=== PATIENT | male | born 1990 | race Caucasian/White ===

== ENCOUNTER 2018-10-19 16:56 | Emergency (ER) | payer OTHER, SELFPAY ==
[2018-10-19 16:57] VITALS: BP 119/74; PULSE 70; RESP 16; TEMP 36.5; O2SAT 100; BMI 27.1
--- NOTE | 2018-10-19 17:23 | ED.VISSUMM ---
- ER Visit Summary Date of Service: 10/19/18 Chief Complaint: Dental pain with facial swelling History of Present Illness: The patient is a 28 M with right-sided dental pain for the past 5 days. He was seen in urgent care 3 days ago and started on amoxicillin. Patient has had increased right facial swelling. He states in the past he has not done well with amoxicillin for dental infections. He does well with Pen-Vee K. Physical Examination: Vital signs unremarkable. Patient sitting upright in bed no acute distress. He speaking with a strong voice. Head neck examination does reveal right maxillary facial edema without erythema. Right maxillary first molar is decayed to the gumline with moderate gum edema. The left mandibular third molar is decayed to the gumline with mild gum edema. Posterior pharynx examination is normal. There is no trismus. Submental space is soft with no sign of Chandana's angina. Remainder of exam is unremarkable. Test Results: [] Emergency Department Course and Treatment: Patient will be given a prescription for Pen-Vee K along with naproxen. He has an appointment with a dentist next week. Treatment Plan: [] Disposition: Discharge Impression: Odontalgia with dental abscess This note was generated with [employer] dictation software. It may contain incorrect words, spelling, and punctuation that were not noted in review of the chart prior to signing ED Disposition - Plan for ED Patient: Chief Complaint: Dental Referrals: Care Physician,No Primary [Primary Care Provider] -
--- NOTE | 2018-10-19 17:25 | ED.DEP ---
ED Disposition - Plan for ED Patient: Disposition: Home or Assisted Living Chief Complaint: Dental Instructions: Dental Abscess Prescriptions: Naproxen [Naprosyn] 500 mg PO BID PRN PRN #20 tablet PRN Reason: Pain Penicillin V Potassium 500 mg PO 4X/DAY #40 tablet Additional Instructions: Follow-up with your dentist as scheduled.
[2018-10-19] MEDS: Penicillin Vk 250 MG Tablet 500 MG PO (17:34)
[2018-10-19] MEDS: Naproxen 500 MG Tablet PO (17:34)
[2018-10-19 17:35] VITALS: BP 109/77; PULSE 62; RESP 15; O2SAT 97
== END 2018-10-19 17:36 | disposition home or self-care (01) ==
PROVIDERS: Emergency Provider Emergency Medicine
DX: K04.7 Periapical abscess without sinus (principal); K08.89 Other specified disorders of teeth and supporting structures; Z72.0 Tobacco use; Z79.2 Long term (current) use of antibiotics
CPT/HCPCS: 99282

== ENCOUNTER 2024-10-25 21:02 | Emergency (ER) | payer OTHER, SELFPAY ==
[2024-10-25 21:03] VITALS: BP 139/69; PULSE 73; RESP 18; TEMP 36.6; O2SAT 100; BMI 25.2
--- NOTE | 2024-10-25 21:11 | ED.VIS.DENTA ---
HPI <LUIS Bo - Last Filed: 10/25/24 21:15> History of Present Illness Chief Complaint: Dental Narrative Narrative: 34-year-old male has significant decay in his left lower molar and developed pain last night which is worsened today. He gets short-term pain relief from Tylenol and ibuprofen. He is here requesting antibiotics. He denies fever or chills, nausea or vomiting, or difficulty swallowing or breathing. PFSH <LUIS Bo - Last Filed: 10/25/24 21:15> [facility] Medical History (Updated 10/25/24 @ 21:10 by Marily Gallegos) Marijuana smoker Medical History no medical history Home Medications ?Medication ?Instructions ?Recorded ?Last Taken ?Type NK 10/25/24 Unknown History penicillin V potassium 500 mg 500 mg PO 4X/DAY #40 tabs 10/25/24 Unknown Rx tablet Allergy/AdvReac Type Severity Reaction Status Date / Time No Known Allergies Allergy Verified 10/25/24 21:03 Family History no significant family his Surgical History no surgical history Social History Smoking Status: Current every day smoker tobacco type: cigarettes ROS <LUIS Bo - Last Filed: 10/25/24 21:15> ROS ED ROS Narrative Constitutional: Negative for fever, chills, malaise. GI: Negative for a nausea, vomiting. Neuro: Negative for headache. EXAM <LUIS Bo - Last Filed: 10/25/24 21:15> Physical Exam Narrative Exam Narrative: CONST: Patient sitting in no acute distress. EYES: Normal inspection. ENT: Left lower molar has extensive decay eroded and was down to the gumline. Tender to palpation. No periapical abscess, no trismus or tongue elevation, sublingual space is soft. No facial swelling or erythema. No submental or submandibular masses. Trachea midline, neck supple. NECK: Normal inspection. RESP: No respiratory distress, CTAB. CVS: Regular rate and rhythm, no murmur, no gallop. SKIN: Color normal, no rash, warm, dry, intact. EXTREMITIES: Normal appearance, no pedal edema. NEURO: Alert and answering questions appropriately. PSYCH: Normal affect. Const Vital Signs: 10/25/24 21:03 10/25/24 21:39 Temperature 98 F 98.2 F Temperature Source Temporal Pulse Rate 73 72 Respiratory Rate 18 18 Blood Pressure 139/69 H 127/82 H Blood Pressure Mean 92 97 Pulse Ox 100 100 Oxygen Delivery Method Room Air <Dr. Corey Griffiths, - Last Filed: 10/25/24 21:43> Physical Exam Const Vital Signs: 10/25/24 21:03 10/25/24 21:39 Temperature 98 F 98.2 F Temperature Source Temporal Pulse Rate 73 72 Respiratory Rate 18 18 Blood Pressure 139/69 H 127/82 H Blood Pressure Mean 92 97 Pulse Ox 100 100 Oxygen Delivery Method Room Air MDM <LUIS Bo - Last Filed: 10/25/24 21:15> [facility] MDM Narrative Medical decision making narrative: 34-year-old male developed pain in his left lower molar last night. He has significant decay. Concern for dental abscess. There is no drainable periapical abscess or signs of Chandana's angina. He was given first dose of penicillin VK and a prescription for home. He declined analgesia stating he will take Tylenol and ibuprofen. He was instructed to follow-up with a dentist and was discharged in stable condition. <Dr. Corey Griffiths, - Last Filed: 10/25/24 21:43> [facility] Treatment and Re-Evaluation Narrative: I have personally performed a face to face assessment of the patient and have reviewed the MARGIE Note. I performed a substantive portion of the visit including all aspects of the following. My hutchinson findings include: History: Patient presents with left lower dental pain that has been getting worse since yesterday. Patient states it is gradually getting worse. Patient states it is constant. Patient describes the pain as throbbing. Patient states nothing makes it better and nothing makes it worse. Patient states the feels like he may be having some swelling in his left lower mandibular area. Patient denies any difficulty breathing or difficulty swallowing. Exam: Vital signs are stable. Patient is afebrile. Patient is in no acute distress. Oral mucosa is pink and moist. Oropharynx is clear. Airway is patent. There are multiple dental caries noted over the left lower molars. There is tenderness to percussion over these teeth. There is gingival edema around these teeth. There is no fluctuance. There is no discharge or drainage. There is no sublingual edema. There is no evidence of Chandana's angina. Medical Decision Making: Patient was given a dose of Pen-Vee K here and a dose of [place] and Zofran here. Patient was given a prescription for Pen-Vee K. Patient was instructed to take Tylenol or ibuprofen as needed for pain. Patient was instructed to follow-up with a dentist in 5 to 7 days for further evaluation and treatment. Patient understood and was agreeable with the plan. All questions were answered. Discharge Plan Triage Chief Complaint: Dental ED Midlevel Provider: Abida Chambers ED Provider: Corey Griffiths Dx/Rx/DC Orders Clinical Impression: Abscess, dental, Dental caries Instructions: Dental Abscess Prescriptions: New penicillin V potassium 500 mg tablet 500 mg PO 4X/DAY Qty: 40 0RF No Action NK Primary Care Provider: Care Physician,No Primary Referrals: Care Physician,No Primary [Primary Care Provider] - Activity Restrictions/Additional Instructions: You can take Tylenol 1000 mg and ibuprofen 600 mg together every 6 hours for pain control. Take the antibiotics as prescribed. Follow-up with a dentist. Print Language: Polish Disposition Disposition: Home, Self Care
[2024-10-25] MEDS: Penicillin Vk 250 MG Tablet 500 MG PO (21:13)
[2024-10-25] MEDS: Ondansetron ODT 4 MG Tablet PO (21:37)
[2024-10-25] MEDS: HYDROcodone Bitartrate/Apap 5/325 Tablet PO (21:37)
[2024-10-25 21:39] VITALS: BP 127/82; PULSE 72; RESP 18; TEMP 36.8; O2SAT 100
== END 2024-10-25 21:50 | disposition home or self-care (01) ==
LOC: ED 21:49
PROVIDERS: Emergency Provider Emergency Medicine; Visit Provider Emergency Medicine
DX: K04.7 Periapical abscess without sinus (principal); K02.9 Dental caries, unspecified; F17.210 Nicotine dependence, cigarettes, uncomplicated
CPT/HCPCS: 99282